=== PATIENT | female | born 1955 | race African-American/Black ===

== ENCOUNTER 2018-06-29 14:34 | Inpatient (IN) | payer OTHER, MEDICAID ==
[~2018-06-29] VITALS: Ht 175.3 cm; Wt 91.6 kg
[~2018-06-29 14:34] MED LIST: ALPR1TAB2 PO; COM5; GABA-529; HYDR25TA; MAX GT; SIMV10TA6; VIC GT; ZOLP10TA2 PO
[2018-06-29] MEDS ORDERED: ONDANSETRON HCL 4MG/2ML VIAL IV STA (14:56)
[2018-06-29] MEDS ORDERED: MORPHINE SULFATE 4 MG/ML CPJ (NOT FOR IM USE) IV STA (14:56)
[2018-06-29 16:01] LABS: BASOPHILS % 0.3 % (0.0-2.0); EOSINOPHILS % 2.2 % (0.0-5.0); HEMATOCRIT. 40.4 % (36.0-48.0); HEMOGLOBIN. 13.5 g/dL (12.0-16.0); LYMPHOCYTES % 29.5 % (20.0-50.0); MEAN CORPUSCULAR HEMOGLOBIN 30.4 pg (28.0-32.0); MEAN CORPUSCULAR VOLUME 90.6 fL (81.0-99.0); MEAN PLATELET VOLUME 8.7 fl (7.4-10.4); MONOCYTES % 12.6 % (2.0-8.0); NEUTROPHILS % 55.4 % (40.0-76.0); PLATELET 307 x1000/uL (130-400); RED BLOOD CELL COUNT 4.46 mill/uL (4.2-5.4); RED CELL DISTRIBUTION WIDTH 13.4 % (11.6-14.6)
[2018-06-29 16:02] LABS: CHLORIDE 103 mEq/L (98-107)
[2018-06-29 16:06] LABS: ETHANOL BLOOD < 10 mg/dL; INR 1.1; PROTHROMBIN TIME 11.1 sec (9.4-11.6)
[2018-06-29] MEDS ORDERED: LEVETIRACETAM 500MG PREMIX 100 ML IV ONE (17:00)
[2018-06-29] MEDS ORDERED: ASPIRIN 325MG EC TABLET PO ONE (17:30)
[2018-06-29] MEDS ORDERED: GUAIFENESIN 200MG/10ML SUGAR FREE UDC PO PRN (18:45)
[2018-06-29] MEDS ORDERED: ACETAMINOPHEN 325MG TABLET PO PRN (18:45)
[2018-06-29] MEDS ORDERED: LORAZEPAM 0.5MG TABLET PO PRN (18:45)
[2018-06-29] MEDS ORDERED: DIPHENHYDRAMINE 50MG/ML VIAL IV PRN (18:45)
[2018-06-29] MEDS ORDERED: CLONIDINE 0.1MG TABLET PO PRN (18:45)
[2018-06-29] MEDS ORDERED: NA PHOS,M-B/NA PHOS,DI-BA ENEMA 118ML PR PRN (18:45)
[2018-06-29] MEDS ORDERED: DOCUSATE SODIUM 100MG CAPSULE PO PRN (18:45)
[2018-06-29] MEDS ORDERED: MAGNESIUM/ALUMINUM HYDROXIDE/SIMETHICONE 30ML UDC PO PRN (18:45)
[2018-06-29] MEDS ORDERED: IPRATROPIUM/ALBUTEROL 0.5-3(2.5)MG/3ML NEB INH PRN (18:45)
[2018-06-29 19:35] LABS: CLARITY URINE CLOUDY (CLEAR); COLOR URINE DARK YELLOW (YELLOW); KETONES URINE TRACE (NEGATIVE); LEUKOCYTE ESTERASE URINE 2+ (NEGATIVE); NITRITE URINE POSITIVE (NEGATIVE); OCCULT BLOOD URINE TRACE (NEGATIVE); PROTEIN URINE 1+ (NEGATIVE)
[2018-06-29] MEDS ORDERED: NITROGLYCERIN 0.4MG TABLET SL SL PRN (19:45)
[2018-06-29 19:50] LABS: *AMPHETAMINES SCREEN URINE NEGATIVE (NEGATIVE)
[2018-06-29 19:51] LABS: *BARBITURATES SCREEN URINE NEGATIVE (NEGATIVE); *BENZODIAZEPINES SCREEN URINE NEGATIVE (NEGATIVE); *COCAINE SCREEN URINE NEGATIVE (NEGATIVE); METHADONE URINE SCREEN NEGATIVE (NEGATIVE); OPIATES URINE SCREEN PRESUMTIVE POSITIVE (NEGATIVE)
[2018-06-29 19:52] LABS: CANNABINOID URINE SCREEN PRESUMTIVE POSITIVE (NEGATIVE); PHENCYCLIDINE URINE SCREEN NEGATIVE (NEGATIVE)
[2018-06-29] MEDS ORDERED: ZOLPIDEM TARTRATE 5MG TABLET PO PRN (21:11)
[2018-06-29] MEDS: TRAMADOL 50MG TABLET PO PRN (21:20)
[2018-06-29 22:00] VITALS: BP 122/58
[2018-06-29] MEDS ORDERED: ONDANSETRON 4MG ODT PO PRN (22:00)
[2018-06-29] MEDS ORDERED: ATORVASTATIN CALCIUM 10MG TABLET PO SCH (22:00)
[2018-06-29] MEDS ORDERED: ENOXAPARIN 40MG/0.4ML SYR SUBCUT SCH (22:00)
[2018-06-29] MEDS: GABAPENTIN 100MG CAPSULE PO SCH (22:44)
[2018-06-29] MEDS: LISINOPRIL 20MG TABLET PO SCH (22:44)
[2018-06-29] MEDS: LEVETIRACETAM 500MG TABLET PO SCH (22:44)
[2018-06-29] MEDS ORDERED: POTASSIUM CHLORIDE 20MEQ TABLET SR PO NR (22:45)
[2018-06-29] MEDS: FAMOTIDINE 20MG TABLET PO SCH (22:45)
[2018-06-29 22:55] VITALS: BP 122/58
[2018-06-29] MEDS ORDERED: KCL 20MEQ/100ML PREMIX 100 ML IV NR (23:30)
[2018-06-30] VITALS (7 sets, daily range): BP systolic 96–127; BP diastolic 47–56
[2018-06-30 00:38] LABS: CREATINE KINASE 55 IU/L (26-192)
[2018-06-30 00:40] LABS: CREATINE KINASE MB FRACTION < 0.5 ng/mL (0.5-3.6)
[2018-06-30] MEDS: GABAPENTIN 100MG CAPSULE PO SCH ×2 (05:51→15:10)
[2018-06-30 07:12] LABS: CREATINE KINASE 49 IU/L (26-192)
[2018-06-30 07:13] LABS: CREATINE KINASE MB FRACTION < 0.5 ng/mL (0.5-3.6)
[2018-06-30] MEDS: LISINOPRIL 20MG TABLET PO SCH (09:00)
[2018-06-30] MEDS ORDERED: ASPIRIN 325MG EC TABLET PO SCH (09:00)
[2018-06-30] MEDS: FAMOTIDINE 20MG TABLET PO SCH (09:51)
[2018-06-30] MEDS: LEVETIRACETAM 500MG TABLET PO SCH (09:51)
[2018-06-30] MEDS ORDERED: BUTALBITAL/ACETAMINOPHEN/CAFFEINE 50/325/40MG TABLET PO PRN (11:15)
[2018-06-30] MEDS: TRAMADOL 50MG TABLET PO PRN (15:11)
== END 2018-06-30 20:35 | disposition short-term general hospital (02) | DRG 313 ==
LOC: ER 14:34 → 6WST 18:21 → EDBEDREQ 18:24 → ENRESERV 19:55
PROVIDERS: ADMIT Internal Medicine; ATTEND Internal Medicine
DX: R07.89 Other chest pain (principal); I69.354 Hemiplegia and hemiparesis following cerebral infarction affecting left non-dominant side; E87.6 Hypokalemia; I10 Essential (primary) hypertension; R73.03 Prediabetes; R56.9 Unspecified convulsions; G43.909 Migraine, unspecified, not intractable, without status migrainosus; F12.10 Cannabis abuse, uncomplicated; Z79.899 Other long term (current) drug therapy; Z71.51 Drug abuse counseling and surveillance of drug abuser; Z88.8 Allergy status to other drugs, medicaments and biological substances
CPT/HCPCS: 36415; 70450; 70551; 71045; 72125; 80053; 80061; 80305; 81003; 82550; 82553; 83036; 83880; 84484; 85025; 85610; 85730; 93005; 93970; 96365; 96375; 99285; G0482; J1650; J1953; J2270; J2405; J3480; J7040; J7050